=== PATIENT | male | born 1955 | race Asian ===

== ENCOUNTER 2018-01-31 09:50 | Emergency (ER) | payer OTHER ==
--- NOTE | 2018-01-31 10:20 | ER Document Report ---
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 Motrin helps but still hurts. - MUSCULOSKELETAL Musculoskeletal: REPORTS: Extremity pain - L shoulder Past Medical History - General Information source: Patient - Social History Smoking Status: Current Every Day Smoker Chew tobacco use (# tins/day): No Frequency of alcohol use: None Drug Abuse: None Occupation: [employer] Lives with: Family, Spouse/Significant other Family History: Reviewed & Not Pertinent Patient has suicidal ideation: No Patient has homicidal ideation: No - Medical History Medical History: Negative Renal/ Medical History: Denies: Hx Peritoneal Dialysis Surgical Hx: Negative Vertical Provider Document - CONSTITUTIONAL Agree With Documented VS: Yes Exam Limitations: No Limitations General Appearance: No Apparent Distress - INFECTION CONTROL TRAVEL OUTSIDE OF THE [place] IN LAST 30 DAYS: No - HEENT HEENT: Normocephalic - NECK Neck: Supple Notes: tender left periscapular muscles - RESPIRATORY Respiratory: Breath Sounds Normal, No Respiratory Distress - CARDIOVASCULAR Cardiovascular: Regular Rate, Regular Rhythm - GI/ABDOMEN Gastrointestinal: Abdomen Soft, Abdomen Non-Tender - MUSCULOSKELETAL/EXTREMETIES Musculoskeletal/Extremeties: MAEW, FROM, Tender - see above - NEURO Level of Consciousness: Awake, Alert Motor/Sensory: No Motor Deficit, No Sensory Deficit - DERM Integumentary: Warm, Dry, No Rash Course - Re-evaluation Re-evalutation: 01/31/18 chest xray is negative. - Vital Signs Vital signs: Temp Pulse Resp BP Pulse Ox 98.8 F 71 18 167/87 H 96 01/31/18 09:55 01/31/18 09:55 01/31/18 09:55 01/31/18 09:55 01/31/18 09:55 Discharge - Discharge Clinical Impression: Strain of left trapezius muscle Qualifiers: Encounter type: initial encounter Qualified Code(s): S46.812A - Strain of other muscles, fascia and tendons at shoulder and upper arm level, left arm, initial encounter Condition: Good Disposition: HOME, SELF-CARE Instructions: Acetaminophen, Anti-Inflammatory Medication ([facility]), Muscle Strain ([facility]), Warm Packs ([facility]) Additional Instructions: Warm compress Tylenol Motrin Referral to family practice doctor for your routine care Copy of negative chest x-ray given to you Prescriptions: Ibuprofen [Motrin 800 mg Tablet] 800 mg PO Q8HP PRN #20 tablet PRN Reason: Forms: Return to Work
--- NOTE | 2018-01-31 11:01 | RADIOLOGY REPORT (SQ) ---
EXAM DESCRIPTION: CHEST PA/LAT COMPLETED DATE/TIME: 01/31/2018 10:46 am REASON FOR STUDY: smoker, left thoracic back pain COMPARISON: None. EXAM PARAMETERS: NUMBER OF VIEWS: two views TECHNIQUE: Digital Frontal and Lateral radiographic views of the chest acquired. RADIATION DOSE: NA LIMITATIONS: none FINDINGS: LUNGS AND PLEURA: No opacities, masses or pneumothorax. No pleural effusion. MEDIASTINUM AND HILAR STRUCTURES: No masses or contour abnormalities. HEART AND VASCULAR STRUCTURES: Heart normal size. No evidence for failure. BONES: No acute findings. HARDWARE: None in the chest. OTHER: No other significant finding. IMPRESSION: NO SIGNIFICANT RADIOGRAPHIC FINDING IN THE CHEST. TECHNICAL DOCUMENTATION: JOB ID: [id number] [employer]- All Rights Reserved Reading location - IP/workstation name: [email or web address]
[2018-01-31 11:36] VITALS: BP 158/94
== END 2018-01-31 11:42 | disposition home or self-care (01) ==
LOC: ER 09:50
DX: S46.812A Strain of other muscles, fascia and tendons at shoulder and upper arm level, left arm, initial encounter (principal); M25.512 Pain in left shoulder; X50.9XXA Other and unspecified overexertion or strenuous movements or postures, initial encounter; F17.200 Nicotine dependence, unspecified, uncomplicated
CPT/HCPCS: 71046; 99283

== ENCOUNTER 2020-07-04 23:12 | Emergency (ER) | payer BC ==
[2020-07-04 23:21] VITALS: BP 149/79
[2020-07-04] MEDS ORDERED: CIPROFLOXACIN-HC OTIC SUSP 10 ML AS ONE (23:41)
--- NOTE | 2020-07-04 23:43 | ER Document Report ---
Doctor's Note Notes: 07/04/20 23:42 Patient seen in conjunction with the nurse practitioner, please see her note to correlate with mine. In short this patient had a bug inside of his ear. He scratched at it to try and remove it. I did go in to see the patient. He has edema and a scant amount of blood noted at the external auditory canal. You can see an insect at the 7:00 location, just up against the tympanic membrane. It was not moving. I was able to, using the curette, remove a small piece of the insect, but the patient could not tolerate any further manipulation. We will treat him with Ciprodex and refer on to ENT.
[2020-07-04] MEDS ORDERED: CIPROFLOXACIN HCL/DEXAMETH OTIC DROP 7.5 ML AS ONE (23:45)
--- NOTE | 2020-07-04 23:46 | ER Document Report ---
ED Foreign Body - General Chief Complaint: Foreign Body in Ear Stated Complaint: INSECT IN EAR Time Seen by Provider: 07/04/20 23:40 Primary Care Provider: ALENA DERAS MD [Primary Care Provider] - Follow up as needed HA SHAH MD [ACTIVE STAFF] - Follow up tomorrow Mode of Arrival: Ambulatory Information source: Patient Notes: 64-year-old male presented to ED for an insect in his left ear. He states the bug flew him just before coming to the emergency room and that he tried to get the bug out but it was kept moving. He states he quit smoking in his ear but did not put anything else in his ear. Patient is alert oriented respirations regular nonlabored speaking in full sentences. TRAVEL OUTSIDE OF THE [place] IN LAST 30 DAYS: No - HPI Location of foreign body: Other - Bug in his left ear Onset: Just prior to arrival Onset/Duration: Sudden Quality of pain: Other - States he can feel the bug moving around Severity: Moderate Pain Level: 3 Associated symptoms: Other - Bug in the ear Exacerbated by: Denies Relieved by: Denies Similar symptoms previously: No Recently seen / treated by doctor: No - Related Data Allergies/Adverse Reactions: No Known Allergies Allergy (Verified 01/31/18 09:53) Past Medical History - General Information source: Patient - Social History Smoking Status: Current Every Day Smoker Cigarette use (# per day): Yes - Pack per day Smoking Education Provided: Yes Frequency of alcohol use: None Drug Abuse: None Lives with: Family Family History: Reviewed & Not Pertinent Patient has suicidal ideation: No Patient has homicidal ideation: No - Past Medical History Cardiac Medical History: Reports: Hx Hypertension Pulmonary Medical History: Reports: None EENT Medical History: Reports: None Neurological Medical History: Reports: None Endocrine Medical History: Reports: Hx Diabetes Mellitus Type 2 Renal/ Medical History: Reports: None Malignancy Medical History: Reports None GI Medical History: Reports: None Musculoskeletal Medical History: Reports None Skin Medical History: Reports None Psychiatric Medical History: Reports: None Traumatic Medical History: Reports: None Infectious Medical History: Reports: None Surgical Hx: Negative Past Surgical History: Reports: None Review of Systems - Review of Systems Constitutional: No symptoms reported EENT: Ear pain - Bug in the left ear Cardiovascular: No symptoms reported Respiratory: No symptoms reported Gastrointestinal: No symptoms reported Genitourinary: No symptoms reported Male Genitourinary: No symptoms reported Musculoskeletal: No symptoms reported Skin: No symptoms reported Hematologic/Lymphatic: No symptoms reported Neurological/Psychological: No symptoms reported Physical Exam - Vital signs Vitals: Temp Pulse Resp BP Pulse Ox 98.3 F 87 16 149/79 H 96 07/04/20 23:19 07/04/20 23:19 07/04/20 23:19 07/04/20 23:19 07/04/20 23:19 Interpretation: Normal - General General appearance: Appears well, Alert - HEENT Head: Normocephalic, Atraumatic Eyes: Normal Pupils: PERRL Ears: Normal External canal: Other - There is a large gouge in the 3 o'clock position of the ear canal when I first examined his ear. There is a bug in the 7 o'clock position of his ear Tympanic membrane: Normal Sinus: Normal Nasal: Normal Mouth/Lips: Normal Mucous membranes: Normal Pharynx: Normal Neck: Normal - Respiratory Respiratory status: No respiratory distress Chest status: Nontender Breath sounds: Normal Chest palpation: Normal - Cardiovascular Rhythm: Regular Heart sounds: Normal auscultation Murmur: No - Abdominal Inspection: Normal Distension: No distension Bowel sounds: Normal Tenderness: Nontender Organomegaly: No organomegaly - Back Back: Normal, Nontender - Extremities General upper extremity: Normal inspection, Nontender, Normal color, Normal ROM, Normal temperature General lower extremity: Normal inspection, Nontender, Normal color, Normal ROM, Normal temperature, Normal weight bearing. No: Malka's sign - Neurological Neuro grossly intact: Yes Cognition: Normal Orientation: AAOx4 [place] Coma Scale Eye Opening: Spontaneous [place] Coma Scale Verbal: Oriented [place] Coma Scale Motor: Obeys Commands [place] Coma Scale Total: 15 Speech: Normal Motor strength normal: LUE, RUE, LLE, RLE Sensory: Normal - Psychological Associated symptoms: Normal affect, Normal mood - Skin Skin Temperature: Warm Skin Moisture: Dry Skin Color: Normal Course - Re-evaluation Re-evalutation: 07/05/20 00:11 I irrigated his ear several times with peroxide and warm water and only got a return of bloody water. After multiple attempts I consulted Dr. Rodriguez who came and tried with a loop curette but she was not able to remove the bug as well. She recommended Ciprodex eardrops and have patient follow-up with ears nose and throat to remove the bug. Patient was instructed please do not put any objects in his ear that woke her his ear in the future. Patient was treated with 4 drops of Ciprodex and given the bottle to take home and given a prescription of the Ciprodex. - Vital Signs Vital signs: Temp Pulse Resp BP Pulse Ox 98.3 F 87 16 149/79 H 96 07/04/20 23:19 07/04/20 23:19 07/04/20 23:19 07/04/20 23:19 07/04/20 23:19 Discharge - Discharge Clinical Impression: Insect bite of left ear Qualifiers: Encounter type: initial encounter Qualified Code(s): S00.462A - Insect bite (nonvenomous) of left ear, initial encounter; W57.XXXA - Bitten or stung by nonvenomous insect and other nonvenomous arthropods, initial encounter Condition: Stable Disposition: HOME, SELF-CARE Additional Instructions: Foreign Object in the Ear, Not Removed Examination showed a foreign body in the ear. This can cause pain, swelling, infection, and decreased hearing. The foreign object must be removed promptly. We were unable to remove it today. We are referring you to a specialist to have the foreign body removed. Call us if you aren't able to be seen as scheduled. Usually no further treatment is necessary following removal. If infection is already present, you may receive a prescription for antibiotic drops. If hearing is not normal after removal of the foreign object, or if an obvious injury to the eardrum was seen, another checkup with the specialist will be necessary. If there is continued drainage, continued earache, fever, headache, or hearing loss, you should return for further care. USE OF EAR DROPS: Your ear drops won't do much good if they don't get all the way in. To help the ear drops penetrate all the way to the ear drum, use the following technique. If you encounter problems of any kind, notify the physician. (1) Lay your head sideways on a pillow. (2) Place the dropper tip just barely inside the ear canal, almost touching the bottom side of the canal. The liquid is tolerated better on the bottom of the canal. (3) Squeeze out the appropriate amount of medicine, and remove the dropper. (4) Grab the back of the ear (just behind the ear canal) between your index finger and thumb. (5) Tug up, then let the ear drop back. Repeat several times. This pumps the medicine down. (6) Wait five minutes, then place a cotton ball in the ear canal to catch and hold the medicine. CIPROFLOXACIN: You have been given an antibacterial agent, ciprofloxacin (Cipro). This medicine is not related to the penicillins, sulfas, cephalosporins, or tetracyclines. It is often given to patients who are allergic to these drugs. It has been chosen for you either because other drugs are not appropriate, or because of the nature of your problem. Cipro should not be taken with antacids, as these can decrease its effectiveness. It can be taken without regard to meals. CIPRO SHOULD NOT BE TAKEN BY CHILDREN, NURSING WOMEN, OR WOMEN. Although Cipro is usually well-tolerated, common side effects can include nausea and diarrhea. Contact your doctor if you experience any unusual symptoms while on this medication, such as joint pain or swelling, shortness of breath, wheezing, faintness, or hives. USE OF ACETAMINOPHEN (Tylenol): Acetaminophen may be taken for pain relief or fever control. It's much safer than aspirin, offering a wider range of "safe" dosages. It is safe during . Some brand names are Tylenol, Panadol, Datril, Anacin 3, Tempra, and Liquiprin. Acetaminophen can be repeated every four hours. The following are maximum recommended dosages: WEIGHT Dose Drops Elixir Chewable(80mg) (LBS.) drprs=droppers tsp=teaspoon 6 40 mg 0.4 ml (1/2) 6-11 80 mg 0.8 ml (full) tsp 1 tab 12-16 120 mg 1 1/2 drprs 3/4 tsp 1 1/2 tabs 17-23 160 mg 2 drprs 1 tsp 2 tabs 24-30 240 mg 3 drprs 1 1/2 tsp 3 tabs 30-35 320 mg 2 tsp 4 tabs 36-41 360 mg 2 1/4 tsp 4 1/2 tabs 42-47 400 mg 2 1/2 tsp 5 tabs 48-53 480 mg 3 tsp 6 tabs 54-59 520 mg 3 1/4 tsp 6 1/2 tabs 60-64 560 mg 3 1/2 tsp 7 tabs 65-70 600 mg 3 3/4 tsp 7 1/2 tabs 71-76 640 mg 4 tsp 8 tabs 77-82 720 mg 4 1/2 tsp 9 tabs 83-88 800 mg 5 tsp 10 tabs >89 pounds or adults 650 mg to 900 mg Acetaminophen can be repeated every four hours. Maximum dose not to exceed 4000 mg a day. These maximum recommended dosages are slightly higher than the dosages written on the product container, but these dosages are very safe and below the toxic dosage for acetaminophen. FOLLOW-UP CARE: If you have been referred to a physician for follow-up care, call the physicians office for an appointment as you were instructed or within the next two days. If you experience worsening or a significant change in your symptoms, notify the physician immediately or return to the Emergency Department at any t [facility] for re-evaluation. Prescriptions: Ciprofloxacin HCl/Dexameth [Ciprodex Otic Suspension 7.5 ml Bottle] 4 drop LFT_EAR BID #1 bottle Forms: Elevated Blood Pressure Referrals: ALENA DERAS MD [Primary Care Provider] - Follow up as needed HA SHAH MD [ACTIVE STAFF] - Follow up tomorrow
== END 2020-07-04 23:55 | disposition home or self-care (01) ==
LOC: ER 23:12
DX: S00.462A Insect bite (nonvenomous) of left ear, initial encounter (principal); W57.XXXA Bitten or stung by nonvenomous insect and other nonvenomous arthropods, initial encounter; T16.2XXA Foreign body in left ear, initial encounter; X58.XXXA Exposure to other specified factors, initial encounter; F17.210 Nicotine dependence, cigarettes, uncomplicated; I10 Essential (primary) hypertension; E11.9 Type 2 diabetes mellitus without complications
CPT/HCPCS: 99283; J3490